=== PATIENT | male | born 1975 | race Caucasian/White ===

== ENCOUNTER 2023-02-22 12:29 | Outpatient (CLI) | payer MEDICAID, SELFPAY ==
--- NOTE | ~2023-02-22 | CT_ITS ---
CT Scan of the Chest without Contrast: Clinical Indication: Lung cancer screening, personal history of nicotine dependence Technique: Contiguous sections were acquired throughout the chest without intravenous contrast. Dose reduction technique was used on this scan by utilizing automated exposure control and iterative recon struction technique. The dose-length product (DLP) was 75.62 mGy-cm. Findings: There is no evidence of any significant mediastinal, hilar or axillary lymphadenopathy. The mediastin al soft tissues appear normal. There is no evidence of pleural or pericardial effusion. 5 mm right middle lobe pulmonary nodule noted (axial image 95). 4 mm right lower lobe pulmonary nodul e noted (axial image 92). 4 mm left lower lobe pulmonary nodule present (axial image 97). 5 mm left l ower lobe pulmonary nodule present (axial image 104). Moderate to advanced paraseptal emphysema noted in the upper lobes. Images through the upper abdomen reveal no abnormalities. Impression: Lung RADS 2: Benign appearance. 12 month follow-up screening CT advised. Reviewed, dictated and finalized at location . Impression: Lung RADS 2: Benign appearance. 12 month follow-up screening CT advised.
== END 2023-02-22 12:30 | disposition home or self-care (01) ==
LOC: CHSIMG 12:34
PROVIDERS: PCP Internal Medicine; Visit Provider Internal Medicine
DX: Z12.2 Encounter for screening for malignant neoplasm of respiratory organs (principal); Z87.891 Personal history of nicotine dependence
CPT/HCPCS: 71271